=== PATIENT | male | born 1940 | race Caucasian/White ===

== ENCOUNTER 2016-09-01 11:15 | Outpatient (RCR) | payer MEDICARE, BC ==
[2016-09-13] MEDS ORDERED: VIVLODEX5 MG PO (18:31)
[2016-09-13] MEDS ORDERED: CELEXA 20MG20 MG/TAB PO (18:32)
[2016-09-13] MEDS ORDERED: MYRBETR50MG PO (18:32)
[2016-09-13] MEDS ORDERED: DESYREL 50MG50 MG PO (18:32)
== END 2016-09-14 | disposition home or self-care (01) ==
LOC: WSPT
DX: M48.06 Spinal stenosis, lumbar region (principal); Z98.1 Arthrodesis status
CPT/HCPCS: G0283-GP; G8978-GP; G8979-GP; G8980-GP

== ENCOUNTER 2016-09-13 17:39 | Inpatient (IN) | payer MEDICARE, BC ==
[2016-09-13] VITALS (115 sets, daily range): BP systolic 135; BP diastolic 88; PULSE 98; TEMP 98.7–99; O2SAT 87–97
[~2016-09-13] VITALS: Ht 170.2 cm; Wt 97.6 kg
[2016-09-13 18:25] LABS: BASO % 0.6 % (0.0-2.0); EOS # 0.1 (0.0-0.7); GRAN # 2.6 (1.4-6.5); HEMATOCRIT 44.2 % (42.0-52.0); LYMPH # 1.3 (1.2-3.4); LYMPH % 27.5 % (20.0-51.0); MEAN CELL VOLUME 98 fl (80.0-100.0); MEAN CORPUSCULAR HEMOGLOBIN 31 pg (27.0-31.0); MEAN CORPUSCULAR HGB CONC 32 g/dl (33.0-37.0); MEAN PLATELET VOLUME 9.2 fl (7.4-10.4); MONO # 0.6 (0.1-0.6); MONO % 13.5 % (1.7-9.3); PLATELET COUNT 141 K/mm3 (130-400); RED BLOOD COUNT 4.53 M/mm3 (4.20-5.60); REDCELL DISTRIBUTION WIDTH-CV 13.6 % (11.5-14.5); WHITE BLOOD COUNT 4.7 K/mm3 (4.8-10.8)
[2016-09-13] MEDS ORDERED: VIVLODEX5 MG PO (18:31)
[2016-09-13 18:32] LABS: INR 1.1 (0.8-3.0); PROTHROMBIN TIME 12.3 SECONDS (9.7-12.8)
[2016-09-13] MEDS ORDERED: DESYREL 50MG50 MG PO (18:32)
[2016-09-13] MEDS ORDERED: CELEXA 20MG20 MG/TAB PO (18:32)
[2016-09-13] MEDS ORDERED: MYRBETR50MG PO (18:32)
[2016-09-13 18:47] LABS: ADJUSTED CALCIUM 9.1 mg/dL (8.4-10.2); ALANINE AMINOTRANSFERASE 29 U/L (21-72); ALBUMIN 3.8 gm/dL (3.5-5.0); ALKALINE PHOSPHATASE 83 U/L (50-136); ANION GAP 6 mmol/L (7-16); BILIRUBIN,TOTAL 0.7 mg/dL (0.0-1.0); BLOOD UREA NITROGEN 24 mg/dL (9-20); C-REACTIVE PROTEIN 1.3 mg/dL (0.0-0.9); CALCIUM 8.9 mg/dL (8.4-10.2); CARBON DIOXIDE 35 mmol/L (22-30); CHLORIDE 98 mmol/L (98-107); CREATININE, serum 0.99 mg/dL (0.66-1.25); GLUCOSE 101 mg/dL (74-106); POTASSIUM 4.5 mmol/L (3.4-5.0); SODIUM 140 mmol/L (137-145); TOTAL PROTEIN 7.2 gm/dL (6.4-8.2)
[2016-09-13 18:56] LABS: B-TYPE NATRIURETIC PEPTIDE 64 pg/mL (0-450)
[2016-09-13 18:57] LABS: TROPONIN-I < 0.012 ng/mL (0.000-0.034)
[2016-09-13 19:50] LABS: ARTERIAL BLD GAS O2 SATURATION 83.3 % (92-100); ARTERIAL BLD GAS TCO2 CT 37.7; ARTERIAL BLOOD GAS BASE EXCESS 6.7 (-2-2); ARTERIAL BLOOD GAS HCO3 35.5 meq/L (22-26); ARTERIAL BLOOD GAS PHT 7.32 C (7.35-7.45); ARTERIAL BLOOD GAS PO2 49.5 mmHg (80-100); ARTERIAL BLOOD GAS PO2T 49.5 (80-100); ARTERIAL BLOOD GAS pH 7.32 (7.35-7.45); OXYHEMOGLOBIN 82.1 %
[2016-09-13 19:52] LABS: ALLEN TEST YES; ALLENS TEST RESULT PASS; ATS? YES
[2016-09-14] VITALS (530 sets, daily range): BP systolic 100–140; BP diastolic 56–84; PULSE 82–96; TEMP 98.3–99.2; O2SAT 85–97
[2016-09-14 06:04] LABS: BASO % 0.3 % (0.0-2.0); GRAN % 84.3 % (42.2-75.2); HEMOGLOBIN 13.5 g/dl (13.5-18.0); LYMPH # 0.5 (1.2-3.4); LYMPH % 14.2 % (20.0-51.0); MEAN CELL VOLUME 97 fl (80.0-100.0); MEAN CORPUSCULAR HEMOGLOBIN 31 pg (27.0-31.0); MEAN CORPUSCULAR HGB CONC 31 g/dl (33.0-37.0); MEAN PLATELET VOLUME 9.5 fl (7.4-10.4); MONO % 0.9 % (1.7-9.3); PLATELET COUNT 121 K/mm3 (130-400); RED BLOOD COUNT 4.42 M/mm3 (4.20-5.60); REDCELL DISTRIBUTION WIDTH-CV 13.3 % (11.5-14.5); WHITE BLOOD COUNT 3.5 K/mm3 (4.8-10.8)
[2016-09-14 06:17] LABS: ANION GAP 8 mmol/L (7-16); BLOOD UREA NITROGEN 24 mg/dL (9-20); CALCIUM 8.8 mg/dL (8.4-10.2); CARBON DIOXIDE 33 mmol/L (22-30); CHLORIDE 98 mmol/L (98-107); GLUCOSE 190 mg/dL (74-106); POTASSIUM 4.3 mmol/L (3.4-5.0); SODIUM 139 mmol/L (137-145)
[2016-09-14 09:30] LABS: TROPONIN-I < 0.012 ng/mL (0.000-0.034)
[2016-09-14 13:21] LABS: PH 5 (5-8); URINE APPEARANCE Hazy; URINE BACTERIA None Seen /hpf; URINE BILIRUBIN Negative (NEGATIVE); URINE BLOOD Negative (NEGATIVE); URINE COLOR Yellow; URINE GLUCOSE Negative (NEGATIVE); URINE KETONE Negative (NEGATIVE); URINE RBC 0-2 /hpf; URINE UROBILINOGEN Negative (NEGATIVE); URINE WBC 0-2 /hpf
[2016-09-15 03:10] VITALS: BP 128/78; PULSE 86; TEMP 98.5
[2016-09-15 07:44] LABS: HEMATOCRIT 42.7 % (42.0-52.0); HEMOGLOBIN 13.2 g/dl (13.5-18.0); MEAN CELL VOLUME 99 fl (80.0-100.0); MEAN CORPUSCULAR HEMOGLOBIN 31 pg (27.0-31.0); MEAN CORPUSCULAR HGB CONC 31 g/dl (33.0-37.0); MEAN PLATELET VOLUME 9.5 fl (7.4-10.4); PLATELET COUNT 123 K/mm3 (130-400); RED BLOOD COUNT 4.33 M/mm3 (4.20-5.60); REDCELL DISTRIBUTION WIDTH-CV 13.2 % (11.5-14.5); WHITE BLOOD COUNT 8.7 K/mm3 (4.8-10.8)
[2016-09-15 08:03] LABS: CALCIUM 8.7 mg/dL (8.4-10.2); CREATININE, serum 0.9 mg/dL (0.66-1.25); POTASSIUM 4.6 mmol/L (3.4-5.0)
[2016-09-15 08:07] LABS: ADD PATHOLOGY DIFF REVIEW NO
[2016-09-15 08:49] VITALS: BP 123/70; PULSE 71; TEMP 97.3
[2016-09-15 09:48] LABS: BAND 12 % (0-10); NEUTROPHILS 83 % (42.0-75.2); TOTAL CELLS COUNTED 100
[2016-09-15 09:49] LABS: PLATELET ESTIMATE NORMAL (NORMAL)
[2016-09-15 10:16] LABS: ARTERIAL BLD GAS O2 SATURATION 94.9 % (92-100); ARTERIAL BLD GAS TCO2 CT 36.5; ARTERIAL BLOOD GAS BASE EXCESS 5.3 (-2-2); ARTERIAL BLOOD GAS HCO3 34.2 meq/L (22-26); ARTERIAL BLOOD GAS PO2 80.8 mmHg (80-100); ARTERIAL BLOOD GAS PO2T 80.8 (80-100); OXYHEMOGLOBIN 93.7 %
[2016-09-15 10:20] LABS: ALLEN TEST YES; ALLENS TEST RESULT PASS; ATS? YES
[2016-09-15 12:13] VITALS: BP 100/54; PULSE 83; TEMP 97.4
[2016-09-15 17:12] VITALS: BP 117/43; PULSE 71; TEMP 98.6
[2016-09-15 20:34] VITALS: BP 130/70; PULSE 71; TEMP 97.8
[2016-09-15 23:34] VITALS: BP 139/72; PULSE 71; TEMP 97.1
[2016-09-16 03:04] VITALS: BP 134/72; PULSE 63; TEMP 97.5
[2016-09-16 04:05] LABS: ARTERIAL BLD GAS O2 SATURATION 96.4 % (92-100); ARTERIAL BLD GAS TCO2 CT 37.2; ARTERIAL BLOOD GAS BASE EXCESS 7.4 (-2-2); ARTERIAL BLOOD GAS HCO3 35.2 meq/L (22-26); ARTERIAL BLOOD GAS PHT 7.36 C (7.35-7.45); ARTERIAL BLOOD GAS PO2 83.7 mmHg (80-100); ARTERIAL BLOOD GAS PO2T 83.7 (80-100); ARTERIAL BLOOD GAS pH 7.36 (7.35-7.45); OXYHEMOGLOBIN 95.6 %
[2016-09-16 04:07] LABS: ALLEN TEST YES; ALLENS TEST RESULT PASS; ATS? YES
[2016-09-16 07:55] VITALS: BP 140/84; PULSE 97; TEMP 98.4
[2016-09-16 08:53] LABS: BASO % 0.1 % (0.0-2.0); GRAN # 7.7 (1.4-6.5); GRAN % 90.3 % (42.2-75.2); HEMATOCRIT 42.8 % (42.0-52.0); HEMOGLOBIN 13.7 g/dl (13.5-18.0); LYMPH # 0.5 (1.2-3.4); LYMPH % 6.2 % (20.0-51.0); MEAN CELL VOLUME 96 fl (80.0-100.0); MEAN CORPUSCULAR HEMOGLOBIN 31 pg (27.0-31.0); MEAN CORPUSCULAR HGB CONC 32 g/dl (33.0-37.0); MEAN PLATELET VOLUME 9.9 fl (7.4-10.4); MONO # 0.3 (0.1-0.6); MONO % 2.9 % (1.7-9.3); PLATELET COUNT 119 K/mm3 (130-400); RED BLOOD COUNT 4.45 M/mm3 (4.20-5.60); REDCELL DISTRIBUTION WIDTH-CV 13.3 % (11.5-14.5); WHITE BLOOD COUNT 8.5 K/mm3 (4.8-10.8)
[2016-09-16 09:11] LABS: CALCIUM 8.8 mg/dL (8.4-10.2); CREATININE, serum 0.86 mg/dL (0.66-1.25)
[2016-09-16 12:09] VITALS: BP 125/68; PULSE 103; TEMP 97.5
[2016-09-16] MEDS ORDERED: LEVAQUIN 750MG750 M1 PO (13:18)
[2016-09-16] MEDS ORDERED: PREDNISONE20 MG PO (13:20)
== END 2016-09-16 16:36 | disposition home or self-care (01) | DRG 189 ==
LOC: COL.ER 17:39 → IMCU 20:27 → MEDICAL 20:27
PROVIDERS: Emergency Medicine; Family Medicine; Internal Medicine; Internal Medicine Pulmonary Disease
DX: J96.02 Acute respiratory failure with hypercapnia (principal); J96.01 Acute respiratory failure with hypoxia; J20.9 Acute bronchitis, unspecified; I10 Essential (primary) hypertension; D69.6 Thrombocytopenia, unspecified; G47.33 Obstructive sleep apnea (adult) (pediatric)
CPT/HCPCS: 99223-AI; 99232-AI; 99233-AI; 99239; J1650; J1956; J2920; J2930; J7030; Q9967

== ENCOUNTER 2016-09-15 10:03 | Outpatient (RCR) | payer MEDICARE, BC ==
[~2016-09-15 10:03] MED LIST: CELEXA 20MG20 MG/TAB PO; DESYREL 50MG50 MG PO; MYRBETR50MG PO; VIVLODEX5 MG PO
[2016-09-16] MEDS ORDERED: LEVAQUIN 750MG750 M1 PO (13:18)
[2016-09-16] MEDS ORDERED: PREDNISONE20 MG PO (13:20)
== END 2016-12-14 ==
LOC: WSC → WSPT 13:15
DX: Z53.09 Procedure and treatment not carried out because of other contraindication (principal)

== ENCOUNTER → 2017-05-13 | Outpatient (CLI) | payer MEDICARE, BC ==
[~2017-05-13] MED LIST changes: +LEVAQUIN 750MG750 M1 PO; +PREDNISONE20 MG PO
== END ==
LOC: COL.RAD 05-08 10:45
DX: M70.62 Trochanteric bursitis, left hip (principal)
CPT/HCPCS: J3301; Q9967

== ENCOUNTER → 2017-12-22 | Outpatient (CLI) | payer MEDICARE, BC ==
[~2017-12-22] MED LIST changes: +FLOMAX 0.40.4 MG/CAP PO; +GLUCOPHAGE500 MG/TAB PO; +PRAVACHOL 20MG20 MG PO
== END ==
LOC: COL.RAD 07:56
DX: M70.62 Trochanteric bursitis, left hip (principal)
CPT/HCPCS: J3301; Q9967

== ENCOUNTER → 2018-05-17 | Outpatient (CLI) | payer MEDICARE, BC | LOC: COL.RAD 11:30 | DX: I51.7 Cardiomegaly (principal); R79.81 Abnormal blood-gas level; W19.XXXA Unspecified fall, initial encounter ==

== ENCOUNTER 2018-06-21 13:45 | Outpatient (RCR) | payer MEDICARE, BC ==
[~2018-06-21 13:45] MED LIST changes: +GLUCOPHAGE XR500 M1 PO; -GLUCOPHAGE500 MG/TAB PO; +LASIX 20MG TABL20 MG PO; +LEVAQUIN 5500 MG/TA1 PO; +TESSALON P100 MG/CAP PO
== END 2018-06-27 | disposition home or self-care (01) ==
LOC: WSPT
DX: G20 Parkinson's disease (principal)
CPT/HCPCS: G8978-GP; G8979-GP

== ENCOUNTER → 2018-07-20 | Outpatient (CLI) | payer MEDICARE, BC | LOC: COL.RAD 08:36 | DX: M70.62 Trochanteric bursitis, left hip (principal) ==

== ENCOUNTER → 2018-08-23 | Outpatient (CLI) | payer MEDICARE, BC ==
[2018-08-23 11:54] LABS: ARTERIAL BLD GAS O2 SATURATION 92.1 % (92-100); ARTERIAL BLD GAS TCO2 CT 30.8; ARTERIAL BLOOD GAS BASE EXCESS 2.9 (-2-2); ARTERIAL BLOOD GAS HCO3 29.2 meq/L (22-26); ARTERIAL BLOOD GAS PCO2 51.5 mmHg (35-45); ARTERIAL BLOOD GAS PO2 64.7 mmHg (80-100); ARTERIAL BLOOD GAS pH 7.37 (7.35-7.45)
== END ==
LOC: COL.PUL 11:20
PROVIDERS: Internal Medicine Pulmonary Disease
DX: J96.21 Acute and chronic respiratory failure with hypoxia (principal)

== ENCOUNTER 2018-09-20 13:30 | Outpatient (RCR) | payer MEDICARE, BC | END 2018-09-26 | disposition home or self-care (01) | LOC: WSPT | DX: G20 Parkinson's disease (principal) ==

== ENCOUNTER 2018-11-05 14:15 | Outpatient (RCR) | payer MEDICARE, BC ==
[2018-11-06] MEDS ORDERED: FLEXERIL 1010 MG/TAB PO (22:28)
[2018-11-06] MEDS ORDERED: MEDROL 4MG DOSPA4 MG PO (22:28)
[2018-11-06] MEDS ORDERED: NORCO 325 MG-51 TAB PO (22:28)
== END 2018-12-26 ==
LOC: WSPT
DX: G20 Parkinson's disease (principal)

== ENCOUNTER 2018-11-06 21:19 | Emergency (ER) | payer MEDICARE, BC ==
[~2018-11-06] VITALS: Ht 167.6 cm; Wt 100.0 kg
[2018-11-06 21:33] VITALS: TEMP 97.7
[2018-11-06] MEDS ORDERED: NORCO 325 MG-51 TAB PO (22:28)
[2018-11-06] MEDS ORDERED: MEDROL 4MG DOSPA4 MG PO (22:28)
[2018-11-06] MEDS ORDERED: FLEXERIL 1010 MG/TAB PO (22:28)
[2018-11-07 00:08] VITALS: BP 149/69; PULSE 77
== END 2018-11-06 23:40 | disposition home or self-care (01) ==
LOC: COL.ER 21:19
DX: M54.42 Lumbago with sciatica, left side (principal); J44.9 Chronic obstructive pulmonary disease, unspecified; G20 Parkinson's disease; Z87.39 Personal history of other diseases of the musculoskeletal system and connective tissue; Z90.49 Acquired absence of other specified parts of digestive tract; Z79.84 Long term (current) use of oral hypoglycemic drugs
CPT/HCPCS: J1170; J7512

== ENCOUNTER → 2018-11-29 | Outpatient (CLI) | payer MEDICARE, BC ==
[~2018-11-29] MED LIST changes: +FLEXERIL 1010 MG/TAB PO; +MEDROL 4MG DOSPA4 MG PO; +NORCO 325 MG-51 TAB PO
== END ==
LOC: COL.RAD 12:30
DX: Z01.812 Encounter for preprocedural laboratory examination (principal); M51.16 Intervertebral disc disorders with radiculopathy, lumbar region; Z98.890 Other specified postprocedural states
CPT/HCPCS: A9585

== ENCOUNTER → 2019-04-01 | Outpatient (CLI) | payer MEDICARE, BC | LOC: COL.RAD 12:30 | DX: M70.72 Other bursitis of hip, left hip (principal) | CPT/HCPCS: J3301; Q9967 ==

== ENCOUNTER 2019-04-07 13:00 | Outpatient (RCR) | payer MEDICARE, BC | END 2019-04-21 | disposition home or self-care (01) | LOC: WSPT | DX: G20 Parkinson's disease (principal); R29.898 Other symptoms and signs involving the musculoskeletal system; M48.061 Spinal stenosis, lumbar region without neurogenic claudication; M54.16 Radiculopathy, lumbar region ==

== ENCOUNTER 2019-07-26 14:00 | Outpatient (RCR) | payer MEDICARE, BC ==
[~2019-07-26 14:00] MED LIST changes: +SINEMET 25/101 UDTAB PO
== END 2019-08-07 | disposition home or self-care (01) ==
LOC: WSPT
DX: G20 Parkinson's disease (principal); M48.00 Spinal stenosis, site unspecified

== ENCOUNTER 2019-10-23 21:18 | Inpatient (IN) | payer MEDICARE, BC ==
[~2019-10-23] VITALS: Ht 167.6 cm; Wt 94.7 kg
[2019-10-23 21:44] LABS: BASO % 0.3 % (0.0-2.0); EOS # 0.1 (0.0-0.7); EOS % 1.8 % (0-4.0); GRAN # 4.3 (1.4-6.5); GRAN % 70.2 % (42.2-75.2); HEMOGLOBIN 11.3 g/dl (13.5-18.0); LYMPH % 16.1 % (20.0-51.0); MEAN CELL VOLUME 104 fl (80.0-100.0); MEAN CORPUSCULAR HEMOGLOBIN 32 pg (27.0-31.0); MEAN CORPUSCULAR HGB CONC 31 g/dl (33.0-37.0); MEAN PLATELET VOLUME 9.1 fl (7.4-10.4); MONO # 0.7 (0.1-0.6); MONO % 11.3 % (1.7-9.3); PLATELET COUNT 124 K/mm3 (130-400); RED BLOOD COUNT 3.53 M/mm3 (4.20-5.60); REDCELL DISTRIBUTION WIDTH-CV 12.4 % (11.5-14.5)
[2019-10-23 21:48] LABS: HEMATOCRIT 36.8 % (42.0-52.0)
[2019-10-23 21:54] LABS: ARTERIAL BLD GAS O2 SATURATION 95.3 % (92-100); ARTERIAL BLD GAS TCO2 CT 50.5; ARTERIAL BLOOD GAS BASE EXCESS 17.6 (-2-2); ARTERIAL BLOOD GAS HCO3 47.7 meq/L (22-26); ARTERIAL BLOOD GAS PO2 77.9 mmHg (80-100); ARTERIAL BLOOD GAS pH 7.34 (7.35-7.45)
[2019-10-23 21:54] LABS: ALANINE AMINOTRANSFERASE 9 U/L (4-49); ALBUMIN 3.4 gm/dL (3.5-5.0); ALKALINE PHOSPHATASE 89 U/L (50-136); AST,SGOT 29 U/L (15-37); BILIRUBIN,TOTAL 0.4 mg/dL (0.0-1.0); BLOOD UREA NITROGEN 32 mg/dL (9-20); CALCIUM 8.9 mg/dL (8.4-10.2); CHLORIDE 93 mmol/L (98-107); CREATININE, serum 0.82 (0.66-1.25); GLUCOSE 117 mg/dL (74-106); POTASSIUM 4.2 mmol/L (3.4-5.0); SODIUM 138 mmol/L (137-145); TOTAL PROTEIN 6.9 gm/dL (6.4-8.2)
[2019-10-23 21:55] LABS: ARTERIAL BLOOD GAS PCO2 91.4 mmHg (35-45)
[2019-10-23 22:12] LABS: CARBON DIOXIDE 46 mmol/L (22-30)
[2019-10-23 22:18] LABS: ANION GAP -1 mmol/L (7-16); TROPONIN-I < 0.012 ng/mL (0.000-0.035)
[2019-10-23 23:48] LABS: ARTERIAL BLD GAS O2 SATURATION 95.6 % (92-100); ARTERIAL BLOOD GAS BASE EXCESS 14.5 (-2-2); ARTERIAL BLOOD GAS HCO3 44.3 meq/L (22-26); ARTERIAL BLOOD GAS PO2 79.1 mmHg (80-100); ARTERIAL BLOOD GAS pH 7.32 (7.35-7.45)
[2019-10-23 23:49] LABS: ARTERIAL BLOOD GAS PCO2 87.6 mmHg (35-45)
[2019-10-24] VITALS (1201 sets, daily range): BP systolic 93–137; BP diastolic 51–77; PULSE 70–85; TEMP 97.7–98.6; O2SAT 77–100
[2019-10-24 01:37] LABS: ARTERIAL BLD GAS TCO2 CT 48.1; ARTERIAL BLOOD GAS BASE EXCESS 15.7 (-2-2); ARTERIAL BLOOD GAS HCO3 45.5 meq/L (22-26); ARTERIAL BLOOD GAS PO2 106.7 mmHg (80-100); ARTERIAL BLOOD GAS pH 7.34 (7.35-7.45)
--- NOTE | 2019-10-24 01:40 | NUR ---
Arrived to the unit via stretcher. Patient alert and oriented. RT at bedside and switched over to BIPAP. Assessment completed at this time. Núñez catheter inserted; patient tolerated well. Will continue to monitor.
[2019-10-24] MEDS ORDERED: TYLENOL 325MG325 MG (01:42)
[2019-10-24 02:24] LABS: BASO % 0.2 % (0.0-2.0); EOS # 0.1 (0.0-0.7); EOS % 1.3 % (0-4.0); GRAN # 4.6 (1.4-6.5); GRAN % 75.4 % (42.2-75.2); HEMATOCRIT 37.2 % (42.0-52.0); HEMOGLOBIN 11.2 g/dl (13.5-18.0); LYMPH # 0.8 (1.2-3.4); LYMPH % 13.9 % (20.0-51.0); MEAN CELL VOLUME 105 fl (80.0-100.0); MEAN CORPUSCULAR HEMOGLOBIN 32 pg (27.0-31.0); MEAN CORPUSCULAR HGB CONC 30 g/dl (33.0-37.0); MEAN PLATELET VOLUME 9.7 fl (7.4-10.4); MONO # 0.5 (0.1-0.6); MONO % 8.9 % (1.7-9.3); PLATELET COUNT 149 K/mm3 (130-400); RED BLOOD COUNT 3.55 M/mm3 (4.20-5.60); REDCELL DISTRIBUTION WIDTH-CV 12.3 % (11.5-14.5)
[2019-10-24 02:31] LABS: INR 1.1 (0.8-3.0); PROTHROMBIN TIME 12.1 SECONDS (9.7-12.8)
[2019-10-24 03:09] LABS: ALBUMIN 3.5 gm/dL (3.5-5.0); BILIRUBIN,TOTAL 0.6 mg/dL (0.0-1.0); C-REACTIVE PROTEIN 0.7 mg/dL (0.0-0.9); CALCIUM 8.9 mg/dL (8.4-10.2); CREATININE, serum 0.75 (0.66-1.25); MAGNESIUM 1.9 mg/dL (1.6-2.3); PHOSPHOROUS 3.1 mg/dL (2.5-4.5); POTASSIUM 4.1 mmol/L (3.4-5.0); TOTAL PROTEIN 7.1 gm/dL (6.4-8.2)
[2019-10-24 03:37] LABS: THYROID STIMULATING HORMONE 1.21 uIU/mL (0.465-4.680)
--- NOTE | 2019-10-24 04:15 | NUR ---
Tolerating ventilator well; no conerns at this time.
[2019-10-24 10:01] LABS: ARTERIAL BLD GAS O2 SATURATION 95.2 % (92-100); ARTERIAL BLD GAS TCO2 CT 48.2; ARTERIAL BLOOD GAS PO2 74.7 mmHg (80-100); ARTERIAL BLOOD GAS pH 7.42 (7.35-7.45)
[2019-10-24 10:08] LABS: ARTERIAL BLOOD GAS PCO2 72.5 mmHg (35-45)
--- NOTE | 2019-10-24 16:44 | NUR ---
The patient is on precautions, SW contacted the patient's , Haleigh to complete initial intake. The patient has a wheelchair and CPAP and uses oxygen at 2L. The patient receives supplies from [employer]. The patient receives some assitance with ADLs and was receives PT services with [facility]. They had been working with him for about two weeks. The patient's PCP is Dr. Jaquez and patient receives medications from [facility]. The patient does not have advanced directives in the EMR. The patient's was open to sending referral for post acute rehab in case it is recommended. STEVEN discussed Medicare.gov's list of post acute rehab facilities. The first choice is [facility] and second choice is [facility]. STEVEN to fax referrals. Will continue to monitor. STEVEN to faxe
--- NOTE | 2019-10-24 19:15 | NUR ---
Patient pulling of BIPAP and yelling out to staff. When entered room reminded patient to utilize call light and to not remove BIPAP without staff help. Patient stated he understood. Assisted with per-care and with calling on telephone. Will continue to monitor.
--- NOTE | 2019-10-24 23:22 | NUR ---
Assisted onto bedpan; patient had small liquid stool. Requested a break from BIPAP. Placed on 3L NC at this time; will continue to monitor.
[2019-10-25] VITALS (473 sets, daily range): BP systolic 100–139; BP diastolic 58–74; PULSE 71–82; TEMP 97.8–98.9; O2SAT 75–98
--- NOTE | 2019-10-25 03:30 | NUR ---
Patient requsting break from BIPAP. Assisted with a bed bath. No concerns at this time.
[2019-10-25 03:48] LABS: BASO % 0.2 % (0.0-2.0); GRAN # 4.8 (1.4-6.5); GRAN % 84.2 % (42.2-75.2); HEMOGLOBIN 11.2 g/dl (13.5-18.0); LYMPH # 0.7 (1.2-3.4); LYMPH % 12.3 % (20.0-51.0); MEAN CELL VOLUME 101 fl (80.0-100.0); MEAN CORPUSCULAR HEMOGLOBIN 32 pg (27.0-31.0); MEAN CORPUSCULAR HGB CONC 32 g/dl (33.0-37.0); MEAN PLATELET VOLUME 9.9 fl (7.4-10.4); MONO # 0.2 (0.1-0.6); MONO % 2.8 % (1.7-9.3); PLATELET COUNT 137 K/mm3 (130-400); RED BLOOD COUNT 3.52 M/mm3 (4.20-5.60); REDCELL DISTRIBUTION WIDTH-CV 12.3 % (11.5-14.5)
[2019-10-25 03:51] LABS: HEMATOCRIT 35.6 % (42.0-52.0)
[2019-10-25 04:04] LABS: CHOLESTEROL RISK RATIO 3.3; CREATININE, serum 1.09 (0.66-1.25); POTASSIUM 3.9 mmol/L (3.4-5.0)
[2019-10-25 05:08] LABS: ARTERIAL BLD GAS O2 SATURATION 96.1 % (92-100); ARTERIAL BLD GAS TCO2 CT 40.6; ARTERIAL BLOOD GAS BASE EXCESS 10.8 (-2-2); ARTERIAL BLOOD GAS HCO3 38.5 meq/L (22-26); ARTERIAL BLOOD GAS PO2 82.7 mmHg (80-100); ARTERIAL BLOOD GAS pH 7.37 (7.35-7.45)
[2019-10-25 05:09] LABS: ARTERIAL BLOOD GAS PCO2 67.7 mmHg (35-45)
--- NOTE | 2019-10-25 07:38 | NUR ---
Shift assessment complete at this time. Plan of care reviewed at bedside with patient. Additional time taken to address any other needs or concerns. Vitals stable at this time. Pt denies pain or any other discomforts. Bed in low position, call light within reach, will continue to monitor.
--- NOTE | 2019-10-25 08:47 | NUR ---
STEVEN faxed referral to Aurea at [facility] and informed Eulalia, IPR Director. Will continue to follow.
--- NOTE | 2019-10-25 12:55 | NUR ---
Aurea from [facility] states they can take the patient as long as the patient only needs BiPAP for naps and sleeping at night, not intermittent use. No trilogy or trilogy recommendation. Will continue to follow.
--- NOTE | 2019-10-25 18:01 | NUR ---
Pt up to room 357. pt is A&O. On 3L NC, satting mid to low 90s. Pt denies any pain or SOB at this time. Pt has pan draining yellow, clear urine. 20g RFA INT IV flushes w/o complications. 1500 FR enforced. Pt on tele, no complications. Pt incontinent of bowel, incontinent care provided. pt assisted to chair, chair alarm on, fall risk precautions in place. No further needs at this time.
--- NOTE | 2019-10-25 18:30 | NUR ---
Pt report received form Sugey DAUGHERTY at bedside. Pt is resting in bed with tv on and call light resting on his torso with bed alarm noted as activated. Will continue to monitor.
--- NOTE | 2019-10-25 20:49 | NUR ---
Pt is noted to have his third small liquid stool since shift change. Pt requests that Dr be notified and "something be done". This verse writer will contact Deysi RICO with status update. Call light within reach. Will continue to monitor.
--- NOTE | 2019-10-26 01:59 | NUR ---
Pt has remained in bed during the shift and has required frequent interventions for bowel incontinence and repositioning. Pt pan remains patent and during incontinence care a light red color and some small clots were noted and it was noted that Pt was pulling on his pan tubing with his foot. Education provided on the need to not pull on the pan as this can cause pain and bleeding. Pt stated understanding. Pt is able to make his wants/needs known and during the final 3/ of shift Pt was compliant with call light usage as opposed to just yelling out for staff to come to his room. Pt is noted to have some slight edema to his BLE. Pt has been unable to provide a stool specimen secondary to his bowel incontinence and inability to report when he needs to have a BM. Will continue to attempt to collect a specimen. Pt is currently resting in bed with tv on and no s/s of distress noted. Call light is on his torso. Will continue to monitor.
[2019-10-26 05:06] LABS: ARTERIAL BLD GAS TCO2 CT 33.8; ARTERIAL BLOOD GAS BASE EXCESS 5.5 (-2-2); ARTERIAL BLOOD GAS HCO3 32.1 meq/L (22-26); ARTERIAL BLOOD GAS PCO2 56.3 mmHg (35-45); ARTERIAL BLOOD GAS PO2 97.3 mmHg (80-100); ARTERIAL BLOOD GAS pH 7.37 (7.35-7.45)
--- NOTE | 2019-10-26 05:09 | NUR ---
Pt has spent the last few hours resting in bed after notifying this mortgage underwriter that he needed assistance with his bedding and was ready to try to get some sleep. Pt has been compliant with call light although he does not verbalize his wants/needs over the call system. Call light is on Pt's abdomen. No s/s of distress noted. Will continue to monitor.
[2019-10-26 05:44] VITALS: BP 130/70; PULSE 67; TEMP 98.6
[2019-10-26 06:40] LABS: BASO % 0.3 % (0.0-2.0); GRAN # 5.7 (1.4-6.5); GRAN % 71.2 % (42.2-75.2); HEMOGLOBIN 11.5 g/dl (13.5-18.0); LYMPH # 1.3 (1.2-3.4); LYMPH % 16.5 % (20.0-51.0); MEAN CELL VOLUME 100 fl (80.0-100.0); MEAN CORPUSCULAR HEMOGLOBIN 32 pg (27.0-31.0); MEAN CORPUSCULAR HGB CONC 32 g/dl (33.0-37.0); MEAN PLATELET VOLUME 10.1 fl (7.4-10.4); MONO # 0.9 (0.1-0.6); MONO % 11.7 % (1.7-9.3); PLATELET COUNT 148 K/mm3 (130-400); RED BLOOD COUNT 3.61 M/mm3 (4.20-5.60); REDCELL DISTRIBUTION WIDTH-CV 12.5 % (11.5-14.5)
[2019-10-26 06:48] LABS: CALCIUM 8.9 mg/dL (8.4-10.2); CREATININE, serum 1.03 (0.66-1.25); POTASSIUM 3.6 mmol/L (3.4-5.0)
[2019-10-26 07:07] VITALS: BP 134/77; PULSE 68; TEMP 98.5
--- NOTE | 2019-10-26 09:28 | NUR ---
Bipap settings: 18/, rate18, 40%
--- NOTE | 2019-10-26 09:58 | NUR ---
Eulalia, IPR Director, reports that they are unable to accept the patient. Dr. Colvin is recommending that the patient continue a bipap at post-acute rehab. STEVEN notified Aurea at [facility] and faxed her updates and the patient's bipap settings. The patient is to tentatively discharge today. STEVEN updated the patient's , Haleigh. SW to continue to follow.
[2019-10-26 11:52] VITALS: BP 131/62; PULSE 70; TEMP 98.6
[2019-10-26] MEDS ORDERED: ZITHROMAX 250M250 MG PO (13:38)
[2019-10-26] MEDS ORDERED: PREDNISONE20 MG PO (13:40)
--- NOTE | 2019-10-26 13:49 | NUR ---
The patient is to discharge today, 10/25, to [facility] for a skilled stay. Transportation was scheduled 1430, via [facility]. SW informed the patient, patient's , and his RN. They were all agreeable to the time. SW also read the IM form outloud to the patient's , Haleigh. Haleigh verbalized understanding and gave SW approval to sign the form on her behalf. SW provided her with a copy. No additional needs at this time.
--- NOTE | 2019-10-26 14:52 | NUR ---
Pt assessment completed and charted this morning. medications administered per JUL. Pt on 2L NC, satting well. Pt wore bipap most of night, ABGs improving. Pt denies any pain, dizziness, SOB at this time. Pt had pan draining zakiya urine, small amount of sediment. Pt discharged to [facility]. Report called to DAT Kinsey. All questions answered. Pan dc'd prior to discharge. No complications. Pt assisted to , escorted out by transport from [facility].
== END 2019-10-26 14:58 | DRG 189 ==
LOC: COL.ER 21:18 → ICU 23:04 → MEDICAL 10-25 16:18
PROVIDERS: Emergency Medicine; Internal Medicine Pulmonary Disease; Nurse Practitioner Family; ADMIT Hospitalist
PROC: 5A09357 Assistance with Respiratory Ventilation, Less than 24 Consecutive Hours, Continuous Positive Airway Pressure (ICD-10-PCS; principal; 2019-10-24)
DX: J96.21 Acute and chronic respiratory failure with hypoxia (principal); I50.33 Acute on chronic diastolic (congestive) heart failure; E87.2 Acidosis; J44.1 Chronic obstructive pulmonary disease with (acute) exacerbation; Z99.81 Dependence on supplemental oxygen; J44.9 Chronic obstructive pulmonary disease, unspecified; G20 Parkinson's disease; G47.33 Obstructive sleep apnea (adult) (pediatric); I11.0 Hypertensive heart disease with heart failure; E78.5 Hyperlipidemia, unspecified; E11.9 Type 2 diabetes mellitus without complications; N40.0 Benign prostatic hyperplasia without lower urinary tract symptoms; Z79.84 Long term (current) use of oral hypoglycemic drugs; Z88.0 Allergy status to penicillin; J96.22 Acute and chronic respiratory failure with hypercapnia; I27.20 Pulmonary hypertension, unspecified; Z20.828 Contact with and (suspected) exposure to other viral communicable diseases; F41.9 Anxiety disorder, unspecified; I08.0 Rheumatic disorders of both mitral and aortic valves; Z91.19 Patient's noncompliance with other medical treatment and regimen
CPT/HCPCS: 99223-AI; 99233-AI; 99239; J1650; J1940; J2920; J7512

== ENCOUNTER 2021-09-08 19:38 | Inpatient (IN) | payer MEDICARE, BC ==
[~2021-09-08] VITALS: Ht 175.3 cm; Wt 85.8 kg
[~2021-09-08 19:38] MED LIST changes: +TYLENOL 325MG325 MG; +ZITHROMAX 250M250 MG PO
[2021-09-08 20:14] LABS: BASO % 0.2 % (0.0-2.0); EOS % 0.1 % (0.0-4.0); GRAN # 11.1 K/mm3 (1.4-6.5); GRAN % 87.7 % (42.2-75.2); HEMOGLOBIN 10.9 g/dl (13.5-18.0); LYMPH # 0.5 K/mm3 (1.2-3.4); LYMPH % 3.6 % (20.0-51.0); MEAN CELL VOLUME 103 fl (80.0-100.0); MEAN CORPUSCULAR HEMOGLOBIN 31 pg (27-31); MEAN CORPUSCULAR HGB CONC 31 g/dl (33.0-37.0); MEAN PLATELET VOLUME 9.3 fl (7.4-10.4); PLATELET COUNT 198 K/mm3 (130-400); RED BLOOD COUNT 3.47 M/mm3 (4.20-5.60); REDCELL DISTRIBUTION WIDTH-CV 12.8 % (11.5-14.5)
[2021-09-08 20:22] LABS: HEMATOCRIT 35.7 % (42.0-52.0)
[2021-09-08 20:34] LABS: ALBUMIN 2.9 gm/dL (3.4-4.8); ALKALINE PHOSPHATASE 69 U/L (40-150); ANION GAP 7 mmol/L (7-16); AST,SGOT 14 U/L (5-34); BILIRUBIN,TOTAL 0.2 mg/dL (0.2-1.2); BLOOD UREA NITROGEN 26 mg/dL (8-26); CALCIUM 9.1 mg/dL (8.4-10.2); CHLORIDE 92 mmol/L (98-107); GLUCOSE 146 mg/dL (70-99); POTASSIUM 4.6 mmol/L (3.5-4.5); SODIUM 142 mmol/L (136-145)
[2021-09-08 20:36] LABS: ALANINE AMINOTRANSFERASE < 6 U/L (0-55); CARBON DIOXIDE 43 mmol/L (23-31)
[2021-09-08 20:39] LABS: TROPONIN-I 0.022 ng/mL (0.00-0.033)
[2021-09-08] MEDS ORDERED: TYLENOL SU650 MG/SUP RC (22:07)
[2021-09-08] MEDS ORDERED: DULCOLAX S10 MG/SUPP RC (22:07)
[2021-09-08] MEDS ORDERED: IPRATROPIUM BROM3 M1 IH (22:08)
[2021-09-08] MEDS ORDERED: DEBROX OT (22:08)
[2021-09-08] MEDS ORDERED: IMODIUM 2MG CAPS2 MG PO (22:08)
[2021-09-08] MEDS ORDERED: MYLANTA 150 ML150 M1 PO (22:09)
[2021-09-08] MEDS ORDERED: GOOD NEIGH1200 MG/15 PO (22:09)
[2021-09-08] MEDS ORDERED: TYLENOL 325MG325 MG PO (22:10)
[2021-09-08 22:45] VITALS: BP 130/75; PULSE 99; TEMP 97.6
--- NOTE | 2021-09-08 23:03 | NUR ---
ADMIT TO FLOOR PER CART. PT IS LETHARGIC AND SLEEPY. NOT ALERT ENOUGH TO GIVE MEDS TO OR ASK QUESTION TO. ASSESSMENT COMPLETE. ORDERS REVIEWED. RT DID EKG ABG AND WILL PUT ON BIPAP TONIGHT. [facility] DID NOT SENT PAPERWORK FROM [facility]. PER REPORT FROM ER PT GRAND DAUGHTER REPORTS PT HAS DEMENTIA IS USUALLY ORIENTATED TO SELF AND PLACE YET HAS GOOD AND BAD DAYS. BED ALARM ON A PRECAUTION REPORTS THAT PT IS W/C BOUND AT HOME. PT IS ROOM NEXT TO NURSE DESK. WILL ATTEMPT TO GET PAPERWORK FROM [facility] IN AM, PASS ONTO DAY SHIFT.
--- NOTE | 2021-09-08 23:40 | NUR ---
PT PAPERWORK FROM [facility] WAS SENT- ELISEO CARRINGTON HAD IT TO REVIEW. ANTIBOTICS AND FLUIDS HUNG. PT REMAINS LETHARGIC AND SLEEPING. PO MEDS HELD, ELISEO NOTIFIED.
[2021-09-09] VITALS (7 sets, daily range): BP systolic 96–144; BP diastolic 50–70; PULSE 71–107; TEMP 97–98.4
[2021-09-09 00:22] LABS: ARTERIAL BLD GAS O2 SATURATION 97.1 % (92-100); ARTERIAL BLOOD GAS BASE EXCESS 18.9 (-2-2); ARTERIAL BLOOD GAS HCO3 51.3 meq/L (22-26); ARTERIAL BLOOD GAS PCO2 125.1 mmHg (35-45); ARTERIAL BLOOD GAS PO2 99.8 mmHg (80-100); ARTERIAL BLOOD GAS pH 7.23 (7.35-7.45)
--- NOTE | 2021-09-09 01:07 | NUR ---
PT WAS PLACED ON BIPAP PER RT. WILL REPEAT ABG TONIGHT.
[2021-09-09 02:19] LABS: ARTERIAL BLD GAS TCO2 CT 47.6; ARTERIAL BLOOD GAS BASE EXCESS 13.9 (-2-2); ARTERIAL BLOOD GAS HCO3 44.6 meq/L (22-26); ARTERIAL BLOOD GAS PO2 90.6 mmHg (80-100); ARTERIAL BLOOD GAS pH 7.27 (7.35-7.45)
[2021-09-09 02:20] LABS: ARTERIAL BLOOD GAS PCO2 100.4 mmHg (35-45)
[2021-09-09 04:48] LABS: ARTERIAL BLD GAS O2 SATURATION 97.6 % (92-100); ARTERIAL BLD GAS TCO2 CT 50.4; ARTERIAL BLOOD GAS BASE EXCESS 17.3 (-2-2); ARTERIAL BLOOD GAS HCO3 47.4 meq/L (22-26); ARTERIAL BLOOD GAS PO2 99.5 mmHg (80-100)
[2021-09-09 04:49] LABS: ARTERIAL BLOOD GAS PCO2 97.6 mmHg (35-45)
--- NOTE | 2021-09-09 05:02 | NUR ---
ELISEO CONFIRMS WITH PT SPOUSE AND DAUGHTER PT IS DNR/DNI. CONT TO BE ON BIPAP. DOES NOT WANT INTUBATED IF CONTINUES TO DECLINE RESPIRTORY.
[2021-09-09 05:55] LABS: BASO % 0.2 % (0.0-2.0); EOS % 0.2 % (0.0-4.0); GRAN # 8.1 K/mm3 (1.4-6.5); GRAN % 83.9 % (42.2-75.2); HEMOGLOBIN 10.1 g/dl (13.5-18.0); LYMPH # 0.7 K/mm3 (1.2-3.4); LYMPH % 6.9 % (20.0-51.0); MEAN CELL VOLUME 106 fl (80.0-100.0); MEAN CORPUSCULAR HEMOGLOBIN 32 pg (27-31); MEAN CORPUSCULAR HGB CONC 30 g/dl (33.0-37.0); MEAN PLATELET VOLUME 9.2 fl (7.4-10.4); MONO # 0.8 K/mm3 (0.1-0.6); MONO % 8.2 % (1.7-9.3); PLATELET COUNT 190 K/mm3 (130-400); REDCELL DISTRIBUTION WIDTH-CV 12.9 % (11.5-14.5)
[2021-09-09 06:29] LABS: CALCIUM 8.8 mg/dL (8.4-10.2); CREATININE, serum 0.68 mg/dL (0.72-1.25); POTASSIUM 4.6 mmol/L (3.5-4.5)
--- NOTE | 2021-09-09 10:37 | NUR ---
Initial visit; Patient's thanked Radiation Protection Specialist for leaving her card and offering God's blessings for Cathy and her as well.
--- NOTE | 2021-09-09 14:13 | NUR ---
Patient currently resides at [facility]. Per Aurea at [facility] patient receives helps with all of his ADL's and is wheelchair bound. STEVEN spoke with the patient's Haleigh ([phone]) via phone due to patient sleeping. He is on 3L of NC at baseline. He has needed a Bipap at night since being here however Haleigh states that he has not needed one before now. PCP is Dr. Belcher and the care home manages his medications. Haleigh is unsure if he has completed at [facility] or not. Informed her that i would reach out to [facility] and see if they had one on file. Discharge plan: [facility]
--- NOTE | 2021-09-09 22:24 | NUR ---
Patient assessed around 2009. Alert and oriented to self. Denies having pain and discomfort. Peripheral IV to left forearm with IV fluids running per orders. Continues no IV ABX per orders. Denies SOB and dyspnea. On BIPAP per orders. LS CTA in upper lobes, diminished in lower. HRR. Telemetry in place. BSAx4. Voices no questions, needs, or concerns at this time. in bed with call light within reach. Bed alarm on.
[2021-09-10 00:06] VITALS: BP 113/70
[2021-09-10 04:36] VITALS: BP 103/53; PULSE 67; TEMP 97.7
--- NOTE | 2021-09-10 05:49 | NUR ---
Patient has been wearing CPAP this shift. Denies pain and discomfort. Has not been pulling at CPAP. Continues on IV fluids and ABX per orders. In bed with call light within reach. Bed alarm on.
[2021-09-10 08:24] VITALS: BP 110/59; PULSE 64; TEMP 98.4
--- NOTE | 2021-09-10 11:21 | NUR ---
Scheduled medications given. Shift assessment performed. VSS. Patient Alert but only oriented to self and birthday. Patient warm and moist to the touch, temp WNL. Patient currently requiring 3L of O2 via nasal cannula. Denies any pain, discomfort, SOA, or further needs at this time. Patient taken down for barium swallow study. Fall percautions in place.
--- NOTE | 2021-09-10 11:42 | NUR ---
Social Work student faxed updates to Aurea at [facility].
[2021-09-10 11:57] VITALS: BP 105/59; PULSE 66; TEMP 98.2
[2021-09-10 15:56] VITALS: BP 127/67; PULSE 86; TEMP 96.8
--- NOTE | 2021-09-10 16:11 | NUR ---
Call made to , she is upset because she feels the patient is agitated here and would do better at [facility]. She understands that he needs the BiPAP and is accepting of his staying another night, but feels he will do better in familiar surrounds just with the added BiPAP or CPAP. She also had questions about the swallow study but I told her she may have to wait and discuss results with the doctor tomorrow. Haleigh stated that she will be in tomorrow morning some time, so I asked if I could stop in and talk with her. She agreed and requested that if the nurse hears anything about the swallow study, to call her.
--- NOTE | 2021-09-10 16:17 | NUR ---
Notified by Aurea at [facility] that the patient would be able to come back with Bipap or Cpap at night but he would not have to require it intermittently throughout the day.
--- NOTE | 2021-09-10 18:51 | NUR ---
Patient has had an ok day. VSS. Patient Alert and partially oriented.
--- NOTE | 2021-09-10 19:11 | NUR ---
Patient denies any pain, discomfort, SOA, or further needs at this time. Light in reach. Fall percautions in place. Fluids running as ordered.
[2021-09-10 20:29] VITALS: BP 118/65; PULSE 90; TEMP 98.3
--- NOTE | 2021-09-10 22:48 | NUR ---
Patient assessed around 2100. Alert and oriented to self. Awake and talking more tonight compared to last night. Denies pain and discomfort. Peripheral INT to left forearm. Recieving IV fluids per orders. Denies SOB and dyspnea. ON oxyge at 3 L/min via NC. Wears BIPAP at night, not on at this time. LS CTA in upper lobes, diminished in lower. HRR. Telemetry in place. BSAx4. 1+ edema BLE. Voices no questions, needs, or concerns at this time. In bed with call light within reach. Bed alarm on.
[2021-09-11 00:36] VITALS: BP 98/50; PULSE 63; TEMP 97.6
[2021-09-11 04:44] VITALS: BP 92/52; PULSE 57; TEMP 97.5
--- NOTE | 2021-09-11 05:33 | NUR ---
Patient checked, changed, and repositioned during the night. Perineal hygiene care provided. Has been wearing BIPAP. Awakens easily. Denies pain and discomfort. In bed with call light within reach. Bed alarm on.
[2021-09-11 06:46] LABS: MEAN CORPUSCULAR HGB CONC 31 g/dl (33.0-37.0); MEAN PLATELET VOLUME 9.7 fl (7.4-10.4); PLATELET COUNT 182 K/mm3 (130-400); REDCELL DISTRIBUTION WIDTH-CV 13.4 % (11.5-14.5)
[2021-09-11 06:49] LABS: HEMATOCRIT 31.2 % (42.0-52.0); HEMOGLOBIN 9.8 g/dl (13.5-18.0); MEAN CELL VOLUME 101 fl (80.0-100.0); MEAN CORPUSCULAR HEMOGLOBIN 32 pg (27-31)
[2021-09-11 06:52] LABS: ALBUMIN 2.6 gm/dL (3.4-4.8); CALCIUM 8.6 mg/dL (8.4-10.2); CREATININE, serum 0.79 mg/dL (0.72-1.25); MAGNESIUM 2.2 mg/dL (1.6-2.6); PHOSPHOROUS 3.9 mg/dL (2.3-4.7); POTASSIUM 4.6 mmol/L (3.5-4.5)
--- NOTE | 2021-09-11 07:07 | NUR ---
Critical CO2 called to Endy Ramirez who read back the results.
[2021-09-11 07:43] LABS: BAND 2 % (0-10); LYMPHOCYTE 3 % (20.0-51.0); NEUTROPHILS 93 % (42.0-75.2)
[2021-09-11 07:44] LABS: HYPOCHROMIA 1+; TEAR DROP CELLS 1+
[2021-09-11 08:06] VITALS: BP 123/66; PULSE 74; TEMP 98
--- NOTE | 2021-09-11 08:19 | NUR ---
Scheduled medications given. Shift assessment performed. Patient denies any pain, discomfort, SOA, or further needs at this time. Patient currently requiring 2L of O2 via nasal cannula. Incontinent of bladder. VSS. Patient alert but only oriented to self and place. Call light in reach. Fall percautions in place.
--- NOTE | 2021-09-11 08:28 | NUR ---
Received voicemail from patient's granddaughter, Yasmeen. She plans to come in with her grandmother to help with clarification on things this morning and just wanted to touch base with me and request someone from palliative attend rounds with her grandmother if she is not here yet. I agreed and told her I would plan to sit with her grandmother and her to discuss the plan of care today and hopefully answer their questions.
--- NOTE | 2021-09-11 09:28 | NUR ---
Met with patient, his Haeligh, daughter Rose, and granddaughter Yasmeen at bedside. I described what comfort care and hospice care are and also discussed diet changes and various preferences and how they fit into the patient's care. would really like the patient back to his room/recliner/familiar surroundings as soon as possible. We talked about how they have the choice to get him back sooner if they decide comfort is the priority. All questions answered and support provided. Plan is to talk with the doctors about plan of care and discuss comfort level with length of stay after that.
--- NOTE | 2021-09-11 10:47 | NUR ---
Initial visit; Patient and his family thanked Program Development Manager for stopping and letting them know of the availability of spiritual care and introducing herself. Program Development Manager offered God's blessings to patient and family.
[2021-09-11] MEDS ORDERED: CLEOCIN HCL300 MG PO (11:13)
[2021-09-11] MEDS ORDERED: PREDNISONE50 MG PO (11:15)
--- NOTE | 2021-09-11 11:21 | NUR ---
Attended rounds with patient, his family, and STEVEN Brady. Family would like the patient to return back to [facility] today if possible. they mentioned no aggressive measures but still wanting to treat various things that might come up in the future. I explained that they can talk with [facility] to establish that the patient won't be admitted to the hospital again and that they can look into palliative health or hospice services down the road. Provided flyer for [facility].
--- NOTE | 2021-09-11 11:24 | NUR ---
ditch worker and SW student attendend rounding. Patients , daughter, graddaughter, and palliative care care RN also in attendance. Family expresses a deep desire for the patient to return back to [facility] today. Family is educated that the patient will need 12hrs of Bipap at night and 3L of NC oxygen during the day. Family is agreeable to this but would like any extrodinary meassures to be taken. The family voices desire for the patient to be comfortable and are ok with going back with oral antibiotics. Notified Aurea at [facility] of pending discharge and the need for Bipap at night. Clinical updates sent to Aurea at [facility] for review.
[2021-09-11 12:20] VITALS: BP 152/93; PULSE 114; TEMP 97.8
--- NOTE | 2021-09-11 13:24 | NUR ---
Patient's covid result faxed to Aurea at [facility]. Transportation arranged for the patient to be picked up at 1345. Informed Aurea that the patient will need oxygen to go back with. Patient's RN notified and patient's contacted with pickup time. Discharge plan: [facility] @1343
--- NOTE | 2021-09-11 13:45 | NUR ---
Patient deemed fit for discharge back to [facility]. Patient currently requiring 2L of O2 via nasal cannula. Denies any pain, discomfort, SOA, or further needs at this time. VSS. Patient alert and partially oriented. Attempted to call report two times with no sucess. IV DC'd catheter intact, no signs of phlebitis. [facility] transporting
== END 2021-09-11 13:45 | disposition home or self-care (01) | DRG 177 ==
LOC: COL.ER 19:38 → MEDICAL 21:11
PROVIDERS: Nurse Practitioner; Student in an Organized Health Care Education/Training Program; ADMIT Internal Medicine
PROC: 5A09457 Assistance with Respiratory Ventilation, 24-96 Consecutive Hours, Continuous Positive Airway Pressure (ICD-10-PCS; principal; 2021-09-09)
DX: J69.0 Pneumonitis due to inhalation of food and vomit (principal); J96.21 Acute and chronic respiratory failure with hypoxia; J96.22 Acute and chronic respiratory failure with hypercapnia; I50.32 Chronic diastolic (congestive) heart failure; E87.4 Mixed disorder of acid-base balance; J44.1 Chronic obstructive pulmonary disease with (acute) exacerbation; I11.0 Hypertensive heart disease with heart failure; N40.0 Benign prostatic hyperplasia without lower urinary tract symptoms; E11.9 Type 2 diabetes mellitus without complications; Z66 Do not resuscitate; E78.5 Hyperlipidemia, unspecified; F32.A Depression, unspecified; G47.00 Insomnia, unspecified; G20 Parkinson's disease; F02.80 Dementia in other diseases classified elsewhere, unspecified severity, without behavioral disturbance, psychotic disturbance, mood disturbance, and anxiety; G47.33 Obstructive sleep apnea (adult) (pediatric); F41.9 Anxiety disorder, unspecified; Z99.81 Dependence on supplemental oxygen; Z88.0 Allergy status to penicillin; Z79.84 Long term (current) use of oral hypoglycemic drugs; Z20.822 Contact with and (suspected) exposure to COVID-19
CPT/HCPCS: 99223-AI; 99233-AI; 99239; J0456; J0696; J1650; J2920; J2930; J3480; J7040; J7050

== ENCOUNTER → 2021-09-26 | Outpatient (CLI) | payer MEDICARE, BC ==
[~2021-09-26] MED LIST changes: +CLEOCIN HCL300 MG PO; +DEBROX OT; +DULCOLAX S10 MG/SUPP RC; +GOOD NEIGH1200 MG/15 PO; +IMODIUM 2MG CAPS2 MG PO; +IPRATROPIUM BROM3 M1 IH; +MYLANTA 150 ML150 M1 PO; +PREDNISONE50 MG PO; +TYLENOL 325MG325 MG PO; +TYLENOL SU650 MG/SUP RC
== END ==
LOC: ZCOL.LAB 15:45
DX: Z20.822 Contact with and (suspected) exposure to COVID-19 (principal)